=== PATIENT | female | born 1985 | race Hispanic/Latino ===

== ENCOUNTER 2022-04-17 15:07 | Emergency (ER) | payer BC, OTHER ==
[~2022-04-17 15:07] MED LIST: Iopamidol 300 61% 100 ML VIAL FS ONE
[2022-04-17] MEDS ORDERED: Ondansetron PF 4 MG/2 ML Vial ONE (16:35)
[2022-04-17] MEDS ORDERED: Ketorolac Tromethamine 30 MG/ML VIAL ONE (16:35)
[2022-04-17 16:53] LABS: Bilirubin Neg (Negative); Blood, Urine 250 (Negative); Clarity Cloudy (Clear); Glucose, Urine (Dipstick) Normal (Negative); Ketone, Urine 5 mg/dL (Negative); Leukocyte 100 (Negative); Nitrite Negative (Negative); Protein, Urine (Dipstick) 100 mg/dl (Neg-Trace); Specific Gravity, Urine 1.025 (1.005-1.030); Urobilinogen Normal mg/dL (Less than 2)
[2022-04-17 16:56] LABS: Pregnancy Test - Urine (BHCG) Negative (Negative); Pregu Control Background? CLEAR/WHITE (CLR/WHITE); Pregu Control Bar Appear? YES (CONTROL BAR); Specific Gravity 1.025 (1.002-1.036)
[2022-04-17 16:59] LABS: RBC/HPF Greater than 50 HPF (0-3)
[2022-04-17 17:00] LABS: Bacteria/HPF 3+ HPF (None Seen)
[2022-04-17 17:01] LABS: Mucous/LPF Rare LPF (<2+)
[2022-04-17 17:02] LABS: Hemoglobin 13.4 g/dL (12.0-15.5); MDiff Complete? YES; Mean Corpuscular HGB CONC 33.8 g/dL (32.0-36.0); Mean Corpuscular Hemoglobin 29.6 pg (27.0-33.0); Mean Corpuscular Volume 87.6 fl (81.6-98.3); Mean Platelet Volume 10.7 fl (7.4-10.4); Platelet Count 396 10x3/uL (150-450); Red Blood Cell (RBC) Count 4.53 10x6/uL (3.90-5.03); White Blood Cell (WBC) Count 20.1 10x3/uL (3.5-10.5)
[2022-04-17 17:09] LABS: ALT (SGPT) 15 U/L (8-55); Albumin 4.6 g/dL (3.5-5.0); Alkaline Phosphatase 116 U/L (40-110); Anion Gap 15 mmol/L (10-20); BUN (Urea Nitrogen) 16 mg/dL (7.0-18.7); Bilirubin, Total 0.2 mg/dL (0.2-1.2); Calc. Creatinine Clearance 0 mL/min (70-130); Calcium 9.6 mg/dL (7.8-10.44); Carbon Dioxide 23 mmol/L (22-29); Chloride 105 mmol/L (98-107); Estimated GFR 58; Globulin 3.8 g/dL (2.4-3.5); Glucose 145 mg/dL (70-105); Lipase 19 U/L (8-78); Potassium 4.7 mmol/L (3.5-5.1); Protein, Total 8.4 g/dL (6.0-8.3); Sodium 138 mmol/L (136-145)
[2022-04-17 17:14] LABS: AST (SGOT) 24 U/L (5-34)
[2022-04-17 17:22] LABS: Band 1 % (5-11); Lymphocytes 13 % (21-51); Monocytes 3 % (0-10); Neutrophil 81 % (42-75); Reactive Lymphocytes 1 % (0-10)
[2022-04-17 17:23] LABS: RBC Morphology Normal
[2022-04-17 17:24] LABS: Large Platelets SLIGHT; Platelet Morphology Comment Appears Adequate
== END 2022-04-17 17:42 | disposition home or self-care (01) ==
LOC: CSHERS 15:07
DX: N13.6 Pyonephrosis (principal)
CPT/HCPCS: 74177; 80053; 81003; 81015; 81025; 83690; 85025; 96374; 96375; J1885; J2405